=== PATIENT | male | born 1975 | race African-American/Black ===

== ENCOUNTER 2016-06-04 20:49 | Emergency (ER) | payer BC ==
--- NOTE | 2016-06-04 21:45 | ER Document Report ---
ED Medical Screen (RME) - General Stated Complaint: DIZZY/LEG AND ARM PAIN Notes: 40 yo male c/o feeling "off balance", feeling foggy, dizzy x 1 1/2 weeks. Seen by PCM for same symptoms. Lab work done, pt has results with him. Denies chest pain and shortness of breath. no n/v, no fever. + hx/o anxiety. pt admits he has been working out alot lately and not hydrating properly, concerned he may be dehydrated. TRAVEL OUTSIDE OF THE [place] IN LAST 30 DAYS: No - Related Data Allergies/Adverse Reactions: No Known Allergies Allergy (Verified 06/04/16 21:45) Past Medical History Pulmonary Medical History: Reports: Hx Bronchitis Psychiatric Medical History: Reports: Hx Anxiety Infectious Medical History: Denies: Hx MRSA Past Surgical History: Reports: Hx Orthopedic Surgery - Immunizations Immunizations up to date: Yes Hx Diphtheria, Pertussis, Tetanus Vaccination: No Physical Exam - Vital signs Vitals: Temp Pulse Resp BP Pulse Ox 98.4 F 92 18 143/94 H 99 06/04/16 21:02 06/04/16 21:02 06/04/16 21:02 06/04/16 21:02 06/04/16 21:02 Course - Vital Signs Vital signs: Temp Pulse Resp BP Pulse Ox 98.4 F 92 18 143/94 H 99 06/04/16 21:02 06/04/16 21:02 06/04/16 21:02 06/04/16 21:02 06/04/16 21:02
[2016-06-04 22:17] LABS: APPEARANCE,URINE CLEAR; BILIRUBIN,URINE NEGATIVE (NEGATIVE); GLUCOSE, URINE NEGATIVE (NEGATIVE); KETONES,URINE NEGATIVE (NEGATIVE); LEUKOCYTE ESTERASE,URINE NEGATIVE (NEGATIVE); NITRITE,URINE NEGATIVE (NEGATIVE); PROTEIN,URINE NEGATIVE (NEGATIVE); URINE SPECIFIC GRAVITY 1.011; UROBILINOGEN,URINE NEGATIVE mg/dL (<2.0)
[2016-06-04 22:22] LABS: ABSOLUTE BASOPHILS # (AUTO) 0.1 10^3/uL (0.0-0.2); ABSOLUTE EOSINOPHILS # (AUTO) 0.2 10^3/uL (0.0-0.6); ABSOLUTE LYMPHOCYTES (AUTO) 2.5 10^3/uL (0.5-4.7); ABSOLUTE MONOCYTES (AUTO) 0.8 10^3/uL (0.1-1.4); ABSOLUTE NEUT (AUTO) 7.7 10^3/uL (1.7-8.2); BASOPHILS % (AUTO) 0.7 % (0-2); EOSINOPHILS % (AUTO) 1.9 % (0-6); HEMATOCRIT 43.8 % (37.9-51.0); HEMOGLOBIN 14.5 g/dL (13.5-17.0); HGB HCT DIFFERENCE -0.3; LYMPHOCYTES % (AUTO) 22.2 % (13-45); MEAN CORPUSCULAR HEMOGLOBIN 26.6 pg (27.0-33.4); MEAN CORPUSCULAR HGB CONC 33.1 g/dL (32.0-36.0); MEAN CORPUSCULAR VOLUME 80 fl (80-97); RED BLOOD COUNT 5.46 10^6/uL (4.35-5.55); RED CELL DISTRIBUTION WIDTH 13.5 % (11.5-14.0); SEGMENTED NEUTROPHILS % (AUTO) 68.2 % (42-78); WHITE BLOOD COUNT 11.3 10^3/uL (4.0-10.5)
[2016-06-04 22:42] LABS: ALANINE AMINOTRANSFERASE 47 U/L (21-72); ALBUMIN 4.9 g/dL (3.5-5.0); ALKALINE PHOSPHATASE 73 U/L (38-126); ANION GAP 15 (5-19); ASPARTATE AMINO TRANSFERASE 34 U/L (17-59); BILIRUBIN,TOTAL 0.6 mg/dL (0.2-1.3); BLOOD UREA NITROGEN 11 mg/dL (7-20); CALCIUM 10.7 mg/dL (8.4-10.2); CARBON DIOXIDE 26 mmol/L (22-30); CHLORIDE 101 mmol/L (98-107); CREATINE KINASE 389 U/L (55-170); CREATININE RESULT 0.84 mg/dL (0.52-1.25); GLUCOSE 123 mg/dL (75-110); POTASSIUM 3.9 mmol/L (3.6-5.0); SODIUM 142.3 mmol/L (137-145); TOTAL PROTEIN 7.9 g/dL (6.3-8.2)
[2016-06-05] MEDS ORDERED: NORMAL SALINE 1000 ML 1,000 ML IV ONE (01:13)
--- NOTE | 2016-06-05 02:01 | ER Document Report ---
ED General - General Chief Complaint: Dizziness Stated Complaint: DIZZY/LEG AND ARM PAIN Notes: Patient is a 40-year-old male without past medical history who presents with 10 days of multiple, somewhat vague complaints. He states overall he feels "fuzzy and just a little off balance". States he is also having bilateral lower extremity cramping. Does describe the pain as intermittent, throbbing, mild pain. Nothing improves or worsens his pain. He is uncertain if he had similar symptoms in the past. He saw his primary care provider earlier this week for these complaints and had laboratories completed which were reportedly normal. States his symptoms have overall been unchanged since onset. He denies any focal weakness, numbness, or true ataxia. Denies any vertigo, lightheadedness or near syncope. Does note that his symptoms started after he started a new aggressive workout regimen approximately 2 weeks ago which she has since discontinued after he began to feel like this. TRAVEL OUTSIDE OF THE [place] IN LAST 30 DAYS: No - Related Data Allergies/Adverse Reactions: No Known Allergies Allergy (Verified 06/04/16 21:45) Past Medical History - General Information source: Patient - Social History Smoking Status: Current Every Day Smoker Chew tobacco use (# tins/day): No Frequency of alcohol use: Occasional Drug Abuse: None Lives with: Spouse/Significant other Family History: Reviewed & Not Pertinent Patient has suicidal ideation: No Patient has homicidal ideation: No Pulmonary Medical History: Reports: Hx Bronchitis Renal/ Medical History: Denies: Hx Peritoneal Dialysis Psychiatric Medical History: Reports: Hx Anxiety Infectious Medical History: Denies: Hx MRSA Past Surgical History: Reports: Hx Orthopedic Surgery - Immunizations Immunizations up to date: Yes Hx Diphtheria, Pertussis, Tetanus Vaccination: No Review of Systems - Review of Systems Notes: Constitutional: Negative for fever. HENT: Negative for sore throat. Eyes: Negative for visual changes. Cardiovascular: Negative for chest pain. Respiratory: Negative for shortness of breath. Gastrointestinal: Negative for abdominal pain, vomiting or diarrhea. Genitourinary: Negative for dysuria. Musculoskeletal: Negative for back pain. Skin: Negative for rash. Neurological: Negative for headaches, weakness or numbness. 10 point ROS negative except as marked above and in HPI. Physical Exam - Vital signs Vitals: Temp Pulse Resp BP Pulse Ox 98.4 F 92 18 143/94 H 99 06/04/16 21:02 03/08/17 21:02 06/04/16 21:02 06/04/16 21:02 06/04/16 21:02 Interpretation: Hypertensive Notes: PHYSICAL EXAMINATION: GENERAL: Well-appearing, well-nourished and in no acute distress. HEAD: Atraumatic, normocephalic. EYES: Pupils equal round and reactive to light, extraocular movements intact, sclera anicteric, conjunctiva are normal. ENT: nares patent, oropharynx clear without exudates. Moist mucous membranes. NECK: Normal range of motion, supple without lymphadenopathy LUNGS: Breath sounds clear to auscultation bilaterally and equal. No wheezes rales or rhonchi. HEART: Regular rate and rhythm without murmurs ABDOMEN: Soft, nontender, normoactive bowel sounds. No guarding, no rebound. No masses appreciated. EXTREMITIES: Normal range of motion, no pitting or edema. No cyanosis. NEUROLOGICAL: Face symmetric. Tongue protrudes midline. Extraocular motions intact. Pupils are 2 mm and equally reactive. Normal speech, normal gait. 5 out of 5 strength in both the distal and proximal upper and lower extremities bilaterally. Sensation is grossly intact throughout. Finger to nose testing normal. Pronator drift normal. PSYCH: Normal mood, normal affect. SKIN: Warm, Dry, normal turgor, no rashes or lesions noted. Course - Re-evaluation Re-evalutation: 06/05/16 01:57 Patient presents with a sensation of imbalance as well as bilateral lower portion of any muscle cramping. Vitals within normal limits at time of assessment. Patient is in no distress. A complete neurologic assessment has been performed and is unremarkable. Patient is able to walk on his toes and heels without any imbalance or ataxia. Negative Romberg. No pronator drift. He has no focal neurologic deficits. Negative straight leg test bilaterally. He has no midline back tenderness step-offs or deformities to suggest an acute back injury. His laboratories demonstrate mild elevation of his creatinine kinase which may be related to his mild dehydration that is present on exam. Patient admits to a dramatically increased workout regimen lately and this of be consistent with his clinical presentation. He is not have symptoms of vertigo to suggest a peripheral or central vertigo. Denies any chest pain, shortness of breath or abdominal pain to suggest an acute FL, pulmonary embolus , or aortic pathology. At this time I do not believe any further imaging or laboratories are indicated.At this time will discharge with return precautions and follow-up recommendations. Verbal discharge instructions given a the bedside and opportunity for questions given. Medication warnings reviewed. Patient is in agreement with this plan and has verbalized understanding of return precautions and the need for primary care follow-up in the next 24-72 hours. - Vital Signs Vital signs: Temp Pulse Resp BP Pulse Ox 98.4 F 92 18 143/94 H 99 06/04/16 21:43 06/04/16 21:43 06/04/16 21:43 06/04/16 21:43 06/04/16 21:43 - Laboratory Result Diagrams: 06/04/16 21:55 06/04/16 21:55 Laboratory results interpreted by me: 06/04/16 06/04/16 21:55 21:55 WBC 11.3 H MCH 26.6 L Glucose 123 H Calcium 10.7 H Creatine Kinase 389 H Discharge - Discharge Clinical Impression: Imbalance Condition: Good Disposition: HOME, SELF-CARE Additional Instructions: Please drink plenty of fluids and be sure not to return to strenuous physical exercise until you have resolution of your symptoms. Please return to the emergency room immediately if you experience any concerning symptoms including high fevers, severe headache, chest pain, difficulty breathing, abdominal pain, slurred speech, numbness or weakness in your arms or legs, or any other symptom that concerns you.
[2016-06-05 17:01] VITALS: BP 142/89
== END 2016-06-04 22:00 | disposition home or self-care (01) ==
LOC: ER 20:49
DX: R26.89 Other abnormalities of gait and mobility (principal); E86.0 Dehydration; M62.838 Other muscle spasm; F17.200 Nicotine dependence, unspecified, uncomplicated
CPT/HCPCS: 36415; 80053; 81001; 82550; 82553; 85025; 99284

== ENCOUNTER 2018-05-13 19:47 | Emergency (ER) | payer BC ==
[2018-05-13] MEDS ORDERED: KETOROLAC TROMETHAMINE 60 MG/2 ML SDV IM ONE (20:49)
[2018-05-13] MEDS ORDERED: ONDANSETRON 4 MG TAB.RAPDIS PO ONE (20:50)
[2018-05-13 21:18] LABS: A TYPE INFLUENZA AG NEGATIVE (NEGATIVE); B INFLUENZA AG NEGATIVE (NEGATIVE)
--- NOTE | 2018-05-13 22:00 | ER Document Report ---
HPI - HPI Time Seen by Provider: 05/13/18 20:17 Pain Level: 2 Notes: Patient is an otherwise healthy 42-year-old male who presents with fever, nausea, body aches, congestion and headache that started this morning. Patient is concerned he has the flu as he has had multiple sick coworkers. Patient denies any vomiting or diarrhea. He reports low-grade fevers at home. Patient requesting flu testing at this time. Patient denies any chronic medical conditions and does not take any daily medications. - CONSTITUTIONAL Constitutional: DENIES: Fever, Chills - EENT EENT: REPORTS: Sore Throat. DENIES: Ear Pain, Eye problems - NEURO Neurology: REPORTS: Headache. DENIES: Weakness, Vision blurred, Dizzinesss / Vertigo - CARDIOVASCULAR Cardiovascular: DENIES: Chest pain - RESPIRATORY Respiratory: DENIES: Trouble Breathing, Coughing - GASTROINTESTINAL Gastrointestinal: DENIES: Abdominal Pain, Black / Bloody Stools - URINARY Urinary: DENIES: Dysuria, Urgency, Frequency - REPRODUCTIVE Reproductive: DENIES: : - MUSCULOSKELETAL Musculoskeletal: DENIES: Extremity pain Past Medical History - General Information source: Patient - Social History Smoking Status: Never Smoker Frequency of alcohol use: None Drug Abuse: None Family History: Reviewed & Not Pertinent Patient has suicidal ideation: No Patient has homicidal ideation: No Pulmonary Medical History: Reports: Hx Bronchitis Renal/ Medical History: Denies: Hx Peritoneal Dialysis Psychiatric Medical History: Reports: Hx Anxiety Infectious Medical History: Denies: Hx MRSA Past Surgical History: Reports: Hx Orthopedic Surgery - Immunizations Immunizations up to date: Yes Hx Diphtheria, Pertussis, Tetanus Vaccination: No Vertical Provider Document - CONSTITUTIONAL Notes: PHYSICAL EXAMINATION: GENERAL: Well-appearing, well-nourished and in no acute distress. HEAD: Atraumatic, normocephalic. EYES: Pupils equal round extraocular movements intact, conjunctiva are normal. ENT: Nares patent with clear rhinorrhea, oropharynx mildly erythematous but without exudates or tonsillar swelling. NECK: Normal range of motion, without cervical lymphadenopathy. LUNGS: No respiratory distress, lung sounds clear to auscultation bilaterally. No increased work of breathing. Musculoskeletal: Normal range of motion NEUROLOGICAL: Normal speech, normal gait. PSYCH: Normal mood, normal affect. SKIN: Warm, Dry, normal turgor, no rashes or lesions noted. - INFECTION CONTROL TRAVEL OUTSIDE OF THE [place] IN LAST 30 DAYS: No Course - Re-evaluation Re-evalutation: Patient appears well, influenza testing was negative. This was discussed with the patient. Patient does have mildly elevated blood pressure, this was also discussed with the patient and encouraged him to follow-up with his primary care provider and start keeping a log of his blood pressures. Patient verbalizes understanding and agreement with plan. - Vital Signs Vital signs: Temp Pulse Resp BP Pulse Ox 97.8 F 93 18 161/112 H 98 05/13/18 19:55 05/13/18 19:55 05/13/18 19:55 05/13/18 19:55 05/13/18 19:55 Discharge - Discharge Clinical Impression: Viral illness Condition: Stable Disposition: HOME, SELF-CARE Instructions: Viral Syndrome ([facility]) Additional Instructions: Your flu test today was negative. The symptoms that have described are consistent with a virus. Please take Tylenol or ibuprofen for any fever or body aches. Rest over the next couple of days and drink plenty of fluids. Forms: Return to Work
[2018-05-13 22:14] VITALS: BP 160/103
== END 2018-05-13 22:19 | disposition home or self-care (01) ==
LOC: ER 19:47
DX: B34.9 Viral infection, unspecified (principal); R50.9 Fever, unspecified; R11.0 Nausea; R51 Headache; J02.9 Acute pharyngitis, unspecified; J34.89 Other specified disorders of nose and nasal sinuses; I10 Essential (primary) hypertension
CPT/HCPCS: 99283; 96372; 87804; J1885; S0119

== ENCOUNTER 2018-12-25 12:17 | Emergency (ER) | payer BC ==
[2018-12-25] MEDS ORDERED: DIPHENHYDRAMINE HCL 50 MG/ML VIAL IV ONE (14:45)
[2018-12-25] MEDS ORDERED: NORMAL SALINE 1000 ML 1,000 ML IV ONE (14:45)
[2018-12-25] MEDS ORDERED: METOCLOPRAMIDE HCL INJ/PF 10 MG/2 ML SDV IV ONE (14:45)
[2018-12-25] MEDS ORDERED: KETOROLAC TROMETHAMINE INJ/PF 30 MG/1 ML SDV IV ONE (14:45)
--- NOTE | 2018-12-25 16:26 | ER Document Report ---
ED General - General Chief Complaint: Headache Stated Complaint: LIGHTHEADED Time Seen by Provider: 12/25/18 14:23 TRAVEL OUTSIDE OF THE [place] IN LAST 30 DAYS: No - HPI Notes: Patient is a 42-year-old male who presents emergency department for evaluation of a headache, nausea, one episode of emesis. The patient has had a headaches in the past. He states he believes it was just because he did not take his Zyrtec today. It is in the face and the top of the head. He rates it variably throughout the course of the day. He is unsure that anything makes it better or worse. He states that it is worse it is an 8-9 out of 10, at its best, is completely resolved. He denies any recent head injuries. He has a mild sore throat that he attributes to sinus drainage. He has had no fevers or chills. No diarrhea. No visual changes. Seeing, speaking, swallowing without difficulty. He states he felt somewhat dizzy earlier, so he became concerned that something more serious was occurring, and presents to the ED for further evaluation. - Related Data Allergies/Adverse Reactions: No Known Allergies Allergy (Verified 12/25/18 13:08) Home Medications: Zyrtec Past Medical History - Social History Smoking Status: Current Every Day Smoker Chew tobacco use (# tins/day): No Frequency of alcohol use: None Drug Abuse: None Family History: Reviewed & Not Pertinent Patient has suicidal ideation: No Patient has homicidal ideation: No Pulmonary Medical History: Reports: Hx Bronchitis Renal/ Medical History: Denies: Hx Peritoneal Dialysis Psychiatric Medical History: Reports: Hx Anxiety Infectious Medical History: Denies: Hx MRSA Past Surgical History: Reports: Hx Orthopedic Surgery - Immunizations Immunizations up to date: Yes Hx Diphtheria, Pertussis, Tetanus Vaccination: No Review of Systems - Review of Systems Constitutional: See HPI EENT: No symptoms reported Cardiovascular: No symptoms reported Gastrointestinal: See HPI Genitourinary: No symptoms reported Musculoskeletal: No symptoms reported Skin: No symptoms reported Neurological/Psychological: See HPI Physical Exam - Vital signs Vitals: Temp Pulse Resp BP Pulse Ox 98.0 F 83 14 158/102 H 98 12/25/18 12:21 12/25/18 12:21 12/25/18 12:21 12/25/18 12:21 12/25/18 12:21 - Notes Notes: Vital signs reviewed, please refer to chart. Head is normocephalic, atraumatic. Pupils equal round, reactive to light. No significant facial tenderness to palpation. Neck is supple without meningismus. Heart is regular rate and rhythm. Lungs are clear to auscultation bilaterally. Abdomen is soft, nontender, normoactive bowel sounds throughout. Extremities without cyanosis, clubbing. Posterior calves are nontender. Peripheral pulses are equal. Skin is warm and dry. Patient is awake, alert, neurological exam is nonfocal. Patient is awake, alert, oriented x3. Cranial nerves II - XII are grossly intact without focal neurological deficits. Strength is plus 5 out of 5 bilateral upper and lower extremities. Sensation is intact. Reflexes symmetrical. Intact [id number], rapid alternating movements, [id number]. Course - Re-evaluation Re-evalutation: 12/25/18 16:23 Patient presents emergency department for evaluation. He is primarily concerned because he had never vomited with any of his headaches, he felt somewhat dizzy. On exam he has a completely normal neurological exam. He is mildly hypertensive but otherwise vital signs are unremarkable. I do not see any indication for imaging in this patient who had slow onset headache, no neurological deficits, who has had periods of time this morning where he was completely pain-free. He is medicated with Toradol, Reglan, Benadryl, fluids. I am still awaiting blood work. I do not suspect any significant abnormalities at this time. These will be reviewed. Patient will be discharged home with nausea medication, close follow-up. He is to return to the ED with worsening or new concerning symptoms of any sort. - Vital Signs Vital signs: Temp Pulse Resp BP Pulse Ox 98.0 F 83 14 158/102 H 98 12/25/18 12:21 12/25/18 12:21 12/25/18 12:21 12/25/18 12:21 12/25/18 12:21 Discharge - Discharge Clinical Impression: Headache, Nausea & vomiting Condition: Stable Disposition: HOME, SELF-CARE Instructions: Antinausea Medication ([facility]), Headache ([facility]) Additional Instructions: Rest, stay well-hydrated. Zofran as needed for severe nausea. Take Tylenol or ibuprofen at home as needed for pain. Follow-up with your doctor on Thursday -you can see either the doctor of your choice or call [facility] for further evaluation. Your blood pressure was elevated here today. There are multiple reasons for this, perhaps it was secondary to pain, but this should be followed up as well. Return to the emergency department with worsening or new concerning symptoms of any sort. Forms: Elevated Blood Pressure Referrals: [facility] [NO LOCAL MD] - Follow up as needed
[2018-12-25 16:35] LABS: ABSOLUTE BASOPHILS # (AUTO) 0.1 10^3/uL (0.0-0.2); ABSOLUTE EOSINOPHILS # (AUTO) 0.1 10^3/uL (0.0-0.6); ABSOLUTE MONOCYTES (AUTO) 0.5 10^3/uL (0.1-1.4); ABSOLUTE NEUT (AUTO) 7.2 10^3/uL (1.7-8.2); BASOPHILS % (AUTO) 0.8 % (0-2); EOSINOPHILS % (AUTO) 0.9 % (0-6); HEMATOCRIT 45.2 % (37.9-51.0); LYMPHOCYTES % (AUTO) 20.4 % (13-45); MEAN CORPUSCULAR HEMOGLOBIN 26.9 pg (27.0-33.4); MEAN CORPUSCULAR HGB CONC 33.2 g/dL (32.0-36.0); MEAN CORPUSCULAR VOLUME 81 fl (80-97); MONOCYTES % (AUTO) 5.2 % (3-13); PLATELET COUNT 209 10^3/uL (150-450); RED BLOOD COUNT 5.59 10^6/uL (4.35-5.55); RED CELL DISTRIBUTION WIDTH 13.1 % (11.5-14.0); SEGMENTED NEUTROPHILS % (AUTO) 72.7 % (42-78); TOTAL CELLS COUNTED % (AUTO) 100 %; WHITE BLOOD COUNT 9.9 10^3/uL (4.0-10.5)
[2018-12-25 16:52] LABS: ALBUMIN 4.7 g/dL (3.5-5.0); ALKALINE PHOSPHATASE 78 U/L (38-126); ANION GAP 10 (5-19); ASPARTATE AMINO TRANSFERASE 33 U/L (17-59); BILIRUBIN,DIRECT 0.1 mg/dL (0.0-0.4); BILIRUBIN,TOTAL 0.4 mg/dL (0.2-1.3); BLOOD UREA NITROGEN 15 mg/dL (7-20); CALCIUM 10.2 mg/dL (8.4-10.2); CARBON DIOXIDE 28 mmol/L (22-30); CHLORIDE 101 mmol/L (98-107); GLUCOSE 109 mg/dL (75-110); POTASSIUM 4.4 mmol/L (3.6-5.0); TOTAL PROTEIN 7.5 g/dL (6.3-8.2)
[2018-12-25 17:45] VITALS: BP 148/98
== END 2018-12-25 17:38 | disposition home or self-care (01) ==
LOC: ER 12:17
DX: R51 Headache (principal); R11.2 Nausea with vomiting, unspecified; J02.9 Acute pharyngitis, unspecified; R42 Dizziness and giddiness; I10 Essential (primary) hypertension; F17.200 Nicotine dependence, unspecified, uncomplicated
CPT/HCPCS: 99284; 96361; 96374; 96375; 36415; 85025; 80053; J1200; J1885; J2765; J7030

== ENCOUNTER 2019-05-10 11:29 | Emergency (ER) | payer BC ==
--- NOTE | 2019-05-10 12:34 | ER Document Report ---
ED Medical Screen (RME) - General Chief Complaint: Dizziness Stated Complaint: DISORIENTED, LIGHT HEADED Time Seen by Provider: 05/10/19 12:28 Mode of Arrival: Ambulatory Information source: Patient Notes: 43-year-old male with history of high blood pressure but does not take any medications presents the emergency department because he just feels off. Reports that he feels like he is walking to one side. Denies fever nausea vomiting diarrhea. Denies chest pain. Denies dizziness. Reports he just does not feel right. He did not make an appointment with a provider for May 19 but felt like he should come to the emergency department because he did not feel right. I have greeted and performed a rapid initial assessment of this patient. A comprehensive ED assessment and evaluation of the patient, analysis of test results and completion of the medical decision making process will be conducted by additional ED providers. TRAVEL OUTSIDE OF THE [place] IN LAST 30 DAYS: No - Related Data Allergies/Adverse Reactions: No Known Allergies Allergy (Verified 05/10/19 12:28) Past Medical History Pulmonary Medical History: Reports: Hx Bronchitis Renal/ Medical History: Denies: Hx Peritoneal Dialysis Psychiatric Medical History: Reports: Hx Anxiety Infectious Medical History: Denies: Hx MRSA Past Surgical History: Reports: Hx Orthopedic Surgery - Immunizations Immunizations up to date: Yes Hx Diphtheria, Pertussis, Tetanus Vaccination: No
[2019-05-10 13:10] LABS: ABSOLUTE BASOPHILS # (AUTO) 0.1 10^3/uL (0.0-0.2); ABSOLUTE EOSINOPHILS # (AUTO) 0.2 10^3/uL (0.0-0.6); ABSOLUTE LYMPHOCYTES (AUTO) 2.2 10^3/uL (0.5-4.7); ABSOLUTE MONOCYTES (AUTO) 0.7 10^3/uL (0.1-1.4); ABSOLUTE NEUT (AUTO) 4.5 10^3/uL (1.7-8.2); BASOPHILS % (AUTO) 0.9 % (0-2); EOSINOPHILS % (AUTO) 2.7 % (0-6); HEMATOCRIT 44.6 % (37.9-51.0); HEMOGLOBIN 14.9 g/dL (13.5-17.0); LYMPHOCYTES % (AUTO) 28.7 % (13-45); MEAN CORPUSCULAR HEMOGLOBIN 27.4 pg (27.0-33.4); MEAN CORPUSCULAR HGB CONC 33.4 g/dL (32.0-36.0); MEAN CORPUSCULAR VOLUME 82 fl (80-97); MONOCYTES % (AUTO) 8.6 % (3-13); PLATELET COUNT 215 10^3/uL (150-450); RED BLOOD COUNT 5.43 10^6/uL (4.35-5.55); RED CELL DISTRIBUTION WIDTH 13.4 % (11.5-14.0); SEGMENTED NEUTROPHILS % (AUTO) 59.1 % (42-78); TOTAL CELLS COUNTED % (AUTO) 100 %; WHITE BLOOD COUNT 7.6 10^3/uL (4.0-10.5)
[2019-05-10 13:11] LABS: APPEARANCE,URINE CLEAR; BILIRUBIN,URINE NEGATIVE (NEGATIVE); COLOR,URINE YELLOW; GLUCOSE, URINE NEGATIVE (NEGATIVE); KETONES,URINE NEGATIVE (NEGATIVE); LEUKOCYTE ESTERASE,URINE NEGATIVE (NEGATIVE); NITRITE,URINE NEGATIVE (NEGATIVE); PROTEIN,URINE NEGATIVE (NEGATIVE); URINE SPECIFIC GRAVITY 1.018; UROBILINOGEN,URINE NEGATIVE mg/dL (<2.0)
[2019-05-10 13:29] LABS: ALBUMIN 4.4 g/dL (3.5-5.0); ALKALINE PHOSPHATASE 71 U/L (38-126); ANION GAP 9 (5-19); ASPARTATE AMINO TRANSFERASE 33 U/L (17-59); BILIRUBIN,TOTAL 0.5 mg/dL (0.2-1.3); BLOOD UREA NITROGEN 13 mg/dL (7-20); CALCIUM 9.8 mg/dL (8.4-10.2); CARBON DIOXIDE 25 mmol/L (22-30); CHLORIDE 104 mmol/L (98-107); GLUCOSE 114 mg/dL (75-110); POTASSIUM 4.4 mmol/L (3.6-5.0); TOTAL PROTEIN 7.3 g/dL (6.3-8.2)
--- NOTE | 2019-05-10 15:00 | ER Document Report ---
ED General - General Chief Complaint: Dizziness Stated Complaint: DISORIENTED, LIGHT HEADED Time Seen by Provider: 05/10/19 12:28 Mode of Arrival: Ambulatory Notes: 43-year-old male with history of hypertension not currently on medication presents with feelings of "off balance" that occurs when he stands up. Patient states he had similar episodes months ago and drink more water which improved it and it cleared up after a while. Patient denies any dizziness, syncope, presyncope, nausea/vomiting, chest pain, dyspnea, fever, weakness, numbness, fever. TRAVEL OUTSIDE OF THE [place] IN LAST 30 DAYS: No - Related Data Allergies/Adverse Reactions: No Known Allergies Allergy (Verified 05/10/19 12:28) Past Medical History - General Information source: Patient - Social History Smoking Status: Current Every Day Smoker Chew tobacco use (# tins/day): No Frequency of alcohol use: None Drug Abuse: None Family History: Reviewed & Not Pertinent Patient has suicidal ideation: No Patient has homicidal ideation: No Pulmonary Medical History: Reports: Hx Bronchitis Renal/ Medical History: Denies: Hx Peritoneal Dialysis Psychiatric Medical History: Reports: Hx Anxiety Infectious Medical History: Denies: Hx MRSA Past Surgical History: Reports: Hx Orthopedic Surgery - Immunizations Immunizations up to date: Yes Hx Diphtheria, Pertussis, Tetanus Vaccination: No Review of Systems - Review of Systems Notes: Constitutional: Negative for fever. HENT: Negative for sore throat. Eyes: Negative for visual changes. Cardiovascular: Negative for chest pain. Respiratory: Negative for shortness of breath. Gastrointestinal: Negative for abdominal pain, vomiting or diarrhea. Genitourinary: Negative for dysuria. Musculoskeletal: Negative for back pain. Skin: Negative for rash. Neurological: Positive for feelings of "off balance." Negative for headaches, weakness or numbness. 10 point ROS negative except as marked above and in HPI. Physical Exam - Vital signs Vitals: Temp Pulse Resp BP Pulse Ox 98.5 F 89 16 168/102 H 99 05/10/19 12:14 05/10/19 12:14 05/10/19 12:14 05/10/19 12:14 05/10/19 12:14 - Notes Notes: GENERAL: Well-appearing, well-nourished and in no acute distress. HEAD: Atraumatic, normocephalic. EYES: Pupils equal round and reactive to light, extraocular movements intact, sclera anicteric, conjunctiva are normal. NECK: Normal range of motion, supple without lymphadenopathy or JVD. EXTREMITIES: Normal range of motion, no pitting or edema. No clubbing or cyanosis. NEUROLOGICAL: Cranial nerves II through XII grossly intact. Normal speech, normal gait. PERRLA. EOM intact. No pronator drift. [employer] Worker strength equal bilaterally. Upper extremity strength equal bilaterally. Lower extremity strength equal bilaterally. No facial droop. No tongue deviation. Normal [id number] test. Negative Romberg. Normal tandem gait. PSYCH: Normal mood, normal affect. SKIN: Warm, Dry, normal turgor, no rashes or lesions noted. Course - Re-evaluation Re-evalutation: 05/10/19 43-year-old male presents with feelings of off balance whenever he stands up and walks. Similar episode a couple months ago. Neuro grossly in tact. Patient is able to ambulate without difficulty. EKG shows no signs of ST elevation. Blood pressure is elevated however patient has an appointment with his primary care doctor in 9 days for checkup. CBC is within normal limits. CMP is within normal limits. UA shows no spilled protein or glucose. No blood or signs of urinary tract infection. Discussed all results with patient. Offered to try a trial of meclizine in ER but states he would rather try it at home. Patient given strict return precautions and encouraged to keep his appointment with his PCP. Patient voices understanding and agrees with plan of care. - Vital Signs Vital signs: Temp Pulse Resp BP Pulse Ox 98.5 F 89 16 168/102 H 99 05/10/19 12:14 05/10/19 12:14 05/10/19 12:14 05/10/19 12:14 05/10/19 12:14 - Laboratory Result Diagrams: 05/10/19 12:53 05/10/19 12:53 Laboratory results interpreted by me: 05/10/19 12:53 Glucose 114 H Discharge - Discharge Clinical Impression: Dizziness Condition: Stable Disposition: HOME, SELF-CARE Instructions: Dizziness ([facility]) Additional Instructions: Your lab work was reassuring today. Please take meclizine as needed. Please follow-up with your primary care doctor on the as scheduled. Return immediately to ER if you start having any worsening symptoms, including fever, nausea, vomiting, chest pain, shortness of breath, dizziness, feeling like you are going to pass out, passing out, weakness, abdominal pain, diarrhea, constipation, or any other symptoms that are concerning to you. Prescriptions: Meclizine HCl [Antivert 25 mg Tablet] 12.5 mg PO TID PRN #21 tablet PRN Reason:
[2019-05-10 15:07] VITALS: BP 149/98
--- NOTE | 2019-05-10 17:28 | EKG REPORT ---
SEVERITY:- NORMAL ECG - SINUS RHYTHM : Confirmed by: Surinder Davis MD 10-May-2019 17:27:36
== END 2019-05-10 15:08 | disposition home or self-care (01) ==
LOC: ER 11:29
DX: R42 Dizziness and giddiness (principal); I10 Essential (primary) hypertension; F17.200 Nicotine dependence, unspecified, uncomplicated
CPT/HCPCS: 36415; 80053; 81001; 85025; 93005; 93010; 99284

== ENCOUNTER 2020-02-04 23:15 | Emergency (ER) | payer BC ==
[2020-02-05] MEDS ORDERED: PREDNISONE 20 MG TABLET PO ONE (00:20)
--- NOTE | 2020-02-05 00:32 | ER Document Report ---
ED Respiratory Problem - General Chief Complaint: Cough Stated Complaint: COUGH,CONGESTION,CHEST TIGHTNESS Time Seen by Provider: 02/04/20 23:58 Primary Care Provider: [facility] [Provider Group] - 02/06/20 (Follow up on thursday for COVID 19 testing) TRAVEL OUTSIDE OF THE [place] IN LAST 30 DAYS: No - HPI Notes: 44-year-old male to the emergency department with complaints of 1 week of cough, chest congestion, depressive and inspiratory chest pain. He denies any fevers or chills. Denies any sore throat, nausea, vomiting, diarrhea, abdominal pain. Denies ear pain. He denies loss of smell or taste. He denies any known contact to COVID-19. However, he does work at [employer]. He always wears a mask. He states that the last time he was tested for COVID-19 was about 1 month ago and it was negative. He is a smoker. He denies having a history of asthma. He states that he feels super congested in his chest. He states he has been taking Mucinex with some benefit. However he got concerned because today he felt a little bit more congested in the chest. The patient was evaluated during the global COVID 19 pandemic, and that diagnosis was suspected/considered upon their initial presentation. Their evaluation, treatment, and testing was consistent with current guidelines for patients who present with complaints or symptoms that may be related to COVID-19. - Related Data Allergies/Adverse Reactions: No Known Allergies Allergy (Verified 02/04/20 23:50) Past Medical History - General Information source: Patient - Social History Smoking Status: Current Every Day Smoker Chew tobacco use (# tins/day): No Frequency of alcohol use: None Drug Abuse: None Family History: Reviewed & Not Pertinent Patient has homicidal ideation: No Pulmonary Medical History: Reports: Hx Bronchitis Renal/ Medical History: Denies: Hx Peritoneal Dialysis Psychiatric Medical History: Reports: Hx Anxiety Infectious Medical History: Denies: Hx MRSA Past Surgical History: Reports: Hx Orthopedic Surgery - Immunizations Immunizations up to date: Yes Hx Diphtheria, Pertussis, Tetanus Vaccination: No Review of Systems - Review of Systems Constitutional: denies: Chills, Fever EENT: Nose congestion. denies: Throat pain Cardiovascular: Chest pain - Tussive and inspiratory chest pain. denies: Palpitations, Heart racing, Orthopnea, Dyspnea, Syncope, Dizziness, Lightheaded Respiratory: Cough. denies: Short of breath Gastrointestinal: denies: Abdominal pain, Diarrhea, Nausea, Vomiting Musculoskeletal: No symptoms reported Skin: No symptoms reported Hematologic/Lymphatic: No symptoms reported Neurological/Psychological: No symptoms reported -: Yes All other systems reviewed and negative Physical Exam - Vital signs Vitals: Temp 98.7 F 02/04/20 23:16 Temp Pulse Resp BP Pulse Ox 98.7 F 84 17 148/94 H 96 02/04/20 23:30 02/04/20 23:30 02/04/20 23:30 02/04/20 23:30 02/04/20 23:30 Intake & Output 02/03/20 02/04/20 02/05/20 06:59 06:59 06:59 Weight 87.09 kg Weight/Height Weight 87.09 kg Height 5 ft 8 in Interpretation: Normal - General General appearance: Appears well, Alert In distress: None - HEENT Head: Normocephalic, Atraumatic Ears: Normal External canal: Normal. No: Blood in canal Tympanic membrane: Normal. No: Bulging, Hemotympanum, Perforation Sinus: Normal. No: Swelling, Tenderness Nasal: Clear rhinorrhea, Other - Mildly edematous nasal mucosa with rhinorrhea.. No: Purulent discharge Mouth/Lips: Normal Mucous membranes: Normal Pharynx: Normal. No: Peritonsillar abscess, Tonsillar hypertrophy, Uvular edema, Potential airway comprom. Neck: Normal, Supple - Respiratory Respiratory status: No respiratory distress Chest status: Nontender. No: Accessory muscle use Breath sounds: Normal. No: Rales, Rhonchi, Wheezing Chest palpation: Normal - Cardiovascular Rhythm: Regular Heart sounds: Normal auscultation Murmur: No Notes: No leg edema - Abdominal Inspection: Normal Distension: No distension Bowel sounds: Normal Tenderness: Nontender. No: Tender, McBurney's point, Sampson's sign, Guarding, Rebound Organomegaly: No organomegaly - Back Back: Normal, Nontender - Neurological Neuro grossly intact: Yes Cognition: Normal Orientation: AAOx4 [place] Coma Scale Eye Opening: Spontaneous [place] Coma Scale Verbal: Oriented [place] Coma Scale Motor: Obeys Commands [place] Coma Scale Total: 15 Speech: Normal Cranial nerves: Normal Cerebellar coordination: Normal Motor strength normal: LUE, RUE, LLE, RLE Sensory: Normal - Psychological Associated symptoms: Normal affect, Normal mood - Skin Skin Temperature: Warm Skin Moisture: Dry Skin Color: Normal Course - Re-evaluation Re-evalutation: 02/05/20 Impression: Upper respiratory infection/bronchitis. X-ray is reassuring. EKG is also very reassuring. He does have some risk for COVID-19 and I did offer him a Covid test today in the emergency department. He states he would like to quarantine and go to [facility] on Thursday for a rapid test. I have counseled him strongly on the importance of quarantine. We will give him breaks work off from work unless he test negative at [facility] in which case they can update his work note. Will send home with albuterol, Medrol Dosepak, Tessalon. Patient agrees with the plan. Patient was provided with discharge information including: As a person under investigation for COVID-19, [facility] and Human Services, division of public health advises you to adhere to the following guidance until your test results are reported to you. If your test result is positive, you will receive additional information from your provider and your local health department at that time. Remain at home until you are cleared by the healthcare provider public health authorities. Keep a log of visitors to your home and notify any visitors to your home of your isolation status. If you plan to move to a new address or leave the country, notify the local health department and your County. Call your doctor or seek care if you have an urgent medical need. Before seeking medical care, call ahead to get instructions from the provider before arriving at the medical office, clinic, or hospital. Notify them that you are being tested for the virus that causes COVID-19 so that arrangements can be made , as necessary, to prevent transmission to others in the healthcare setting. Next, notify the local health department and your County. If a medical emergency arises and you need to call 911, informed the first responders that you are being tested for the virus that causes COVID-19. Next, notified the local health department and your County. - Vital Signs Vital signs: Temp Pulse Resp BP Pulse Ox 97.6 F 80 16 136/82 H 99 02/05/20 01:33 02/05/20 01:33 02/05/20 01:33 02/05/20 01:33 02/05/20 01:33 - Diagnostic Test Radiology reviewed: Image reviewed, Reports reviewed - EKG Interpretation by Me Additional EKG results interpreted by me: 02/05/20 00:45 Rate 82 Rhythm: Sinus rhythm Interpretation: No STEMI, no ST changes, no LVH. No significant changes to comparison on May 10, 2019 Discharge - Discharge Clinical Impression: Bronchitis, Educated about COVID-19 virus infection URI (upper respiratory infection) Qualifiers: URI type: unspecified URI Qualified Code(s): J06.9 - Acute upper respiratory infection, unspecified Condition: Stable Disposition: HOME, SELF-CARE Instructions: Upper Respiratory Illness ([facility]) Additional Instructions: Follow-up with [facility] for outpatient rapid COVID-19 testing. Please quarantine until you have the test done. Your x-ray today was negative for pneumonia. Will start on steroid Dosepak, cough medicine cough albuterol inhaler. Return if worsening symptoms. Push fluids. As a person under investigation for COVID-19, [facility] Services, division of public health advises you to adhere to the following guidance until your test results are reported to you. If your test result is positive, you will receive additional information from your provider and your local health department at that time. Remain at home until you are cleared by the healthcare provider public health authorities. Keep a log of visitors to your home and notify any visitors to your home of your isolation status. If you plan to move to a new address or leave the country, notify the local health department and your County. Call your doctor or seek care if you have an urgent medical need. Before seeking medical care, call ahead to get instructions from the provider before arriving at the medical office, clinic, or hospital. Notify them that you are being tested for the virus that causes COVID-19 so that arrangements can be made, as necessary, to prevent transmission to others in the healthcare setting. Next, notify the local health department and your County. If a medical emergency arises and you need to call 911, informed the first responders that you are being tested for the virus that causes COVID-19. Next, notified the local health department and your County. Prescriptions: Benzonatate [Tessalon Perles 100 mg Capsule] 100 mg PO Q8HP PRN #40 capsule PRN Reason: Albuterol Sulfate [Albuterol Sulfate Hfa] 2 puff IH Q4H #1 hfa.[id number].ad Methylprednisolone [Medrol Dosepack (4 mg/Tab) 21 Tab/Dosepak] 4 mg PO ASDIR PRN #21 tab.ds.pk PRN Reason: Forms: Return to Work Referrals: [facility] [Provider Group] - 02/06/20 (Follow up on thursday for COVID 19 testing)
--- NOTE | 2020-02-05 01:15 | RADIOLOGY REPORT (SQ) ---
EXAM DESCRIPTION: XR CHEST 1 VIEW COMPLETED DATE/TME: 02/05/2020 00:19 CLINICAL INDICATION: 44-year-old male with productive cough for one week. TECHNIQUE: Single view, AP portable chest was obtained. COMPARISON: 08/16/2011. FINDINGS: Unremarkable cardiac and mediastinal silhouette. Heart size is normal. Lungs are clear without focal opacity, pneumothorax or pleural effusions. The visualized bones are within normal limits. IMPRESSION: No acute cardiopulmonary abnormalities.
[2020-02-05 01:35] VITALS: BP 136/82
--- NOTE | 2020-02-05 18:11 | EKG REPORT ---
SEVERITY:- NORMAL ECG - SINUS RHYTHM : Confirmed by: Jose Mccarty MD 05-Feb-2020 18:11:10
== END 2020-02-05 01:35 | disposition home or self-care (01) ==
LOC: ER 23:15
DX: J40 Bronchitis, not specified as acute or chronic (principal); J06.9 Acute upper respiratory infection, unspecified; R07.89 Other chest pain; R09.89 Other specified symptoms and signs involving the circulatory and respiratory systems; F17.200 Nicotine dependence, unspecified, uncomplicated; Z20.828 Contact with and (suspected) exposure to other viral communicable diseases
CPT/HCPCS: 93005; 99284; 71045; 93010; J7512